=== PATIENT | female | born 1975 | race Caucasian/White ===

== ENCOUNTER 2016-04-23 20:20 | Emergency (ER) | payer OTHER ==
[~2016-04-23] VITALS: Ht 165.1 cm; Wt 49.0 kg
[~2016-04-23 20:20] MED LIST: CIPRO HC OTIC S10 ML BOTH EARS; MOTRIN600 MG PO; MOTRIN800 MG PO; NOHOMEMEDS; SUMATRIPTAN SU100 MG PO; XARELTO15 MG PO
[2016-04-23 20:47] LABS: HEMATOCRIT 42.9 % (36.0-46.0); MCH 30.7 PG (29.0-34.0); MCV 90.3 FL (83-99); MEAN PLAT.VOLUME 9.8 uM^3 (9.5-12.4); PLATELET COUNT 235 K/uL (156-360); RBC DIS.WIDTH-CV 12.7 % (11.8-14.6); RBC DIS.WIDTH-SD 41.6 % (39-53); RED BLOOD COUNT 4.75 M/uL (3.80-5.20); WHITE BLOOD COUNT 8.9 K/uL (4.1-10.2)
[2016-04-23 21:00] LABS: CHLORIDE 104 mEq/L (99-109); POTASSIUM 3.8 mEq/L (3.7-5.4); SODIUM 140 mEq/L (136-147)
[2016-04-23 21:02] LABS: GLUCOSE 96 mg/dL (70-99)
[2016-04-23 21:03] LABS: ANION GAP 11 MEQ/L (2-14)
[2016-04-23 21:05] LABS: D-DIMER ELISA 0.26 mg/L FEU (< 0.57)
[2016-04-23 21:06] LABS: GFR ESTIMATE (CALCULATED) > 59 mL/min/; UREA NITROGEN (BUN) 11 mg/dL (9-23)
[2016-04-23] MEDS ORDERED: NAPROSYN500 MG PO (21:23)
[2016-04-23] MEDS ORDERED: TESSALON PERLE100 MG PO (21:23)
[2016-04-23 21:33] VITALS: BP 119/77
== END 2016-04-23 21:34 | disposition home or self-care (01) ==
LOC: EME 20:20
DX: R09.1 Pleurisy (principal); R07.81 Pleurodynia; R05 Cough; Z79.01 Long term (current) use of anticoagulants; Z86.718 Personal history of other venous thrombosis and embolism; F17.200 Nicotine dependence, unspecified, uncomplicated
CPT/HCPCS: 71020; 80048; 85027; 85379; 93005; 99281; 99284

== ENCOUNTER 2017-01-09 11:45 | Emergency (ER) | payer OTHER ==
[~2017-01-09] VITALS: Ht 162.6 cm; Wt 52.6 kg
[~2017-01-09 11:45] MED LIST changes: +NAPROSYN500 MG PO; +TESSALON PERLE100 MG PO
[2017-01-09 13:24] LABS: HEMATOCRIT 39.9 % (36.0-46.0); MCHC 33.6 G/DL (30.0-36.0); MCV 92.4 FL (83-99); MEAN PLAT.VOLUME 10.3 uM^3 (9.5-12.4); PLATELET COUNT 230 K/uL (156-360); RBC DIS.WIDTH-CV 12.5 % (11.8-14.6); RBC DIS.WIDTH-SD 42.7 % (39-53); RED BLOOD COUNT 4.32 M/uL (3.80-5.20); WHITE BLOOD COUNT 12.8 K/uL (4.1-10.2)
[2017-01-09 13:36] LABS: CHLORIDE 106 mEq/L (99-109); POTASSIUM 3.9 mEq/L (3.7-5.4); SODIUM 140 mEq/L (136-147)
[2017-01-09 13:38] LABS: GLUCOSE 75 mg/dL (70-99)
[2017-01-09 13:39] LABS: ANION GAP 7 MEQ/L (2-14)
[2017-01-09 13:42] LABS: GFR ESTIMATE (CALCULATED) > 59 mL/min/
[2017-01-09 13:43] LABS: UREA NITROGEN (BUN) 10 mg/dL (9-23)
[2017-01-09] MEDS ORDERED: TESSALON200 MG PO (14:50)
[2017-01-09] MEDS ORDERED: NAPROSYN500 MG PO (14:50)
[2017-01-09 15:10] VITALS: BP 108/68
== END 2017-01-09 15:11 | disposition home or self-care (01) ==
LOC: EME 11:45
PROVIDERS: Nurse Practitioner Family
DX: R09.1 Pleurisy (principal); R05 Cough; R79.1 Abnormal coagulation profile; Z86.711 Personal history of pulmonary embolism; Z86.718 Personal history of other venous thrombosis and embolism; F17.200 Nicotine dependence, unspecified, uncomplicated
CPT/HCPCS: 71020; 71275; 80048; 85027; 85379; 99281; 99284